=== PATIENT | male | born 1975 | race Caucasian/White ===

== ENCOUNTER 2020-05-15 09:05 | Emergency (ER) | payer OTHER ==
[~2020-05-15] VITALS: Ht 188 cm; Wt 103.0 kg
[2020-05-15 09:05] VITALS: BP 135/105
--- NOTE | 2020-05-15 09:10 | NUR ---
PT C/O SORE THROAT 05/01 FOR ONE WEEK S/P RELEASE FROM [facility]. DENIES FEVER, CHILLS, COUGH, N/V/D, OR LAB CONFIRMED COVID-19 CONTACT. NO EDEMA BUT SLIGHT ERYTHEMA NOTICED.
--- NOTE | 2020-05-15 09:51 | NUR ---
PT AMBULATED FROM BATHROOM TO ROOM 7. PT STATES HE IS NOT ABLE TO URINATE AT THIS TIME.
--- NOTE | 2020-05-15 10:25 | NUR ---
Patient unable to provide urine at this time. Pt is requesting to leave to get cranberry juice and then return. Patient advised he could not leave and come back. Pt states "I can't pee right." Patient was asked to be patient and wait in bed and we could provide as much fluid to drink and he was like or need. Patient states "Why can't I just leave and come back? I can't go right now." Dr. Garcia made aware and asked pt to wait in ED. Patient was provided with 3 boxes of cranberry juice and a pitcher of ice water and is drinking fluids calmy at this time.
--- NOTE | 2020-05-15 10:47 | NUR ---
URINE SAMPLE OBTAINED.
[2020-05-15 10:54] VITALS: BP 128/98
== END 2020-05-15 10:54 | disposition home or self-care (01) ==
LOC: MED 09:05
DX: J02.9 Acute pharyngitis, unspecified (principal); R59.1 Generalized enlarged lymph nodes; F17.200 Nicotine dependence, unspecified, uncomplicated
CPT/HCPCS: 36415; 81002; 99282